=== PATIENT | male | born 1960 | race Caucasian/White ===

== ENCOUNTER → 2016-11-02 | Outpatient (CLI) | payer BC ==
[~2016-11-02] MED LIST: ACET-2723 PO; ATOR10TA20 PO; CARV25TA28 PO; CIPR-151 PO; FURO40TA5 PO; HYDR-3989 PO; IBUP-1264 PO; MONT10TA15 PO; OMEP20CA10 PO; TRAM50TA4 PO; TRIA16.56 NS
== END ==
LOC: LABN 12:01
PROVIDERS: ATTEND Nurse Practitioner Family
DX: R11.0 Nausea (principal); R61 Generalized hyperhidrosis; I51.7 Cardiomegaly
CPT/HCPCS: 84484